=== PATIENT | female | born 1970 ===

== ENCOUNTER 2017-07-05 21:42 | Emergency (ER) | payer OTHER ==
[2017-07-05 21:50] VITALS: BP 119/94; PULSE 105; RESP 20; TEMP 98.9; O2SAT 98
--- NOTE | 2017-07-05 22:49 | ED PDOC ---
HPI: General Adult Time Seen by Provider: 07/05/17 22:39 Chief Complaint (Nursing): Pain, Chronic Chief Complaint (Provider): pain History Per: Patient History/Exam Limitations: no limitations Additional Complaint(s): 46yo F in ED for eval of diffuse body pain x 1 year however worsened this past week. says she was dx with fibromyalgia and is taking prednisone and gabapentin but states she is not noting any pain relief. denies CP, SOB. but admits to diffuse pain no fever hematuria diarrhea vomiting Past Medical History Reviewed: Historical Data, Nursing Documentation, Vital Signs Vital Signs: Last Vital Signs Temp 98.9 F 07/05/17 21:45 Pulse 105 H 07/05/17 21:45 Resp 20 07/05/17 21:45 BP 119/94 H 07/05/17 21:45 Pulse Ox 98 07/05/17 21:45 - Medical History PMH: No Chronic Diseases Denies: Chronic Kidney Disease - Family History Family History: States: No Known Family Hx - Home Medications Home Medications: Ambulatory Orders Medication Instructions Recorded Gluc/Chnd/Om3/Dha/Epa/Fish/Str 1 each PO DAILY #60 capsule 07/05/17 [Glucosamine-Chondr Plus Sftgel] Lactobacillus Combo No.10 1 each PO DAILY #60 capsule 07/05/17 [Probiotic] Vitamin B Complex/Folic Acid 1 tab PO DAILY #60 tab 07/05/17 [Vitamin B-100 Complex Tablet] - Allergies Allergies/Adverse Reactions: Allergies Allergy/AdvReac Type Severity Reaction Status Date / Time Penicillins Allergy RASH Verified 07/05/17 21:51 Review of Systems ROS Statement: Except As Marked, All Systems Reviewed And Found Negative Constitutional: Positive for: Malaise Physical Exam - Reviewed Nursing Documentation Reviewed: Yes Vital Signs Reviewed: Yes - Physical Exam Appears: Positive for: Non-toxic, No Acute Distress, Uncomfortable Head Exam: Positive for: ATRAUMATIC, NORMAL INSPECTION, NORMOCEPHALIC Skin: Positive for: Normal Color, Warm, DRY Eye Exam: Positive for: Normal appearance Neck: Positive for: Normal, Painless ROM Cardiovascular/Chest: Positive for: Regular Rate, Rhythm Respiratory: Positive for: CNT, Normal Breath Sounds Gastrointestinal/Abdominal: Positive for: Normal Exam, Bowel Sounds, Soft. Negative for: Tenderness Back: Positive for: Normal Inspection, Vertebral Tenderness, Other (tenderness to diffuse body ) Extremity: Positive for: Normal ROM, Tenderness Neurologic/Psych: Positive for: Alert, Oriented - ECG O2 Sat by Pulse Oximetry: 98 Medical Decision Making Medical Decision Making: dx: fibromylagia-highly suspicious. advised strongly to f.u with pain mgnt and rheumotologist. Pt will be d/c on probiotics, bone health supplements and B-12. given torodol IM in ED. Disposition - Clinical Impression Clinical Impression: Fibromyalgia - Patient ED Disposition Is Patient to be Admitted: No Counseled Patient/Family Regarding: Diagnosis, Need For Followup, Rx Given - Disposition Referrals: [facility] [Outside] [facility] [Outside] Disposition: Routine/Home Disposition Time: 22:53 Condition: STABLE Prescriptions: Gluc/Chnd/Om3/Dha/Epa/Fish/Str [Glucosamine-Chondr Plus Sftgel] 1 each PO DAILY #60 capsule Lactobacillus Combo No.10 [Probiotic] 1 each PO DAILY #60 capsule Vitamin B Complex/Folic Acid [Vitamin B-100 Complex Tablet] 1 tab PO DAILY #60 tab Instructions: Fibromyalgia (ED) Print Language: FILIPINO
== END 2017-07-05 23:13 | disposition home or self-care (01) ==
LOC: H.ER 21:42
DX: M79.7 Fibromyalgia (principal)